=== PATIENT | female | born 1995 | race Caucasian/White ===

== ENCOUNTER 2024-02-28 13:17 | Emergency (ER) | payer OTHER, SELFPAY ==
[2024-02-28 13:27] VITALS: BP 152/86; PULSE 83; RESP 20; TEMP 37.3; O2SAT 99; BMI 25.1
--- NOTE | 2024-02-28 13:39 | ED_ITS ---
HPI - General Time Seen by Provider: 13:39 Date Seen: 02/28/24 Chief complaint: Vaginal Bleeding Stated complaint: Bleeding, cramping, 5/6 weeks Time Seen by Provider: 02/28/24 13:38 Source: patient and RN notes reviewed Mode of arrival: ambulatory Limitations: no limitations History of Present Illness HPI Narrative: This 28-year-old female is coming in with concern of increasing vaginal bleeding with confirmed . She had her last menstrual. Start on January 12. She had a positive test at home, went for confirmation of at a clinic in [place] on February 18. She started cramping on Monday, bleeding started on Monday but bleeding has intensified. She feels lightheaded it, short of breath from her bleeding. She has passed a few clots. They became concerned because the bleeding was have year and making her symptomatic. She states that no blood work was done at this appointment. This is her 1st p regnancy. She states they did an ultrasound in the clinic and told her she may have an ectopic, did ask her if they saw the on ultrasound. It sounds as if they could not see a on ultrasound and advised her of possible ectopic. She is having lower abdominal pain/pelvic pain, sounds like cramping. Related Data Home Medications ?Medication ?Instructions ?Recorded ?Confirmed Effexor XR 02/28/24 methylphenidate HCl 10 mg tablet 10 mg PO DAILY 02/28/24 02/28/24 (Ritalin) Allergies Allergy/AdvReac Type Severity Reaction Status Date / Time metoclopramide (From Reglan) Allergy Mild Shakiness Verified 02/28/24 13:35 Review of Systems Status of ROS: Reports: 6 or more systems reviewed and unremarkable except as noted in History and below [facility] Social History Smoking Status: Never smoker How often do you have a drink containing alcohol: never How often do you have six or more drinks on one occasion: Never AUDIT-C Alcohol total score: 0 Non-prescribed substance use: denies use service: No Exam Const: Vital Signs, click to edit/add: Vital Signs - 24 hr 02/28/24 13:27 02/28/24 15:05 02/28/24 15:44 Temperature 99.1 F 98.2 F Pulse Rate [Pulse Oximeter] 83 101 H Respiratory Rate 20 18 Blood Pressure [15 2/86] 152/86 H 145/79 H Pulse Oximetry 99 98 Oxygen Delivery Me thod Room Air Room Air This 28-year-old female is alert, interactive, no apparent distress. Sclera clear, face atraumatic. CV regular rate and rhythm, no significant murmur, normal S1-S2, no S3-S4. Lungs are clear, no tachypnea, no wheezing or crackles. Abdomen is soft, nondistended, no organomegaly or masses. She states she has mild tenderness in both right and left lower quadrants of her abdomen in the pelvic region, right is maybe worse than left but there is certainly no palpable masses, no evidence of any rebound or guarding. Pelvic exam deferred at this time. Documenting provider has reviewed patient's vital signs: yes Course Course ED Course: We will place an IV in this patient, check appropriate blood work including type and screen, quantitative hCG. First trimester limited OB ultrasound has been ordered. Did happen to see optical effects line up person on-call in passing, she is aware this patient is here. At this time patient is hemodynamically stable but will watch her closely. This needs to be better defined whether there is concern of ectopic here or if this is potentially a miscarriage. Reevaluation(s) Time of Reevaluation #1: 15:48 Reevaluation #1: Patient had been given some Zofran, she was dry heaving. She admits she has not ate or drank anything today. We discussed her hCG level and the preliminary construction assistant report. This is likely representing a miscarriage. We will await the Radiology reading of her ultrasound. Her hemoglobin is good, no concerning significant bleeding here. Recheck of vitals show stability but minimally elevated blood pressure. Patient is obviously anxious and under stress from her current situation however. She is afebrile at this time, temperature was rechecked. Time of Reevaluation #2: 16:12 Reevaluation #2: Updated patient plan after discussion with Dr. Kelley. She will be discharged to home. Consultations Consultation #1: Have reviewed case with Dr. Kelley. She agrees with following the hCG, agrees likely miscarriage given clinical scenario. Time: 16:10 Vital Signs Vital signs: Initial Vital Signs Temperature 99.1 F 02/28/24 13:27 Temperature Source Temporal Artery Scan 02/28/24 13:27 Pulse Rate 83 02/28/24 13:27 Pulse Rhythm Regular 02/28/24 13:27 Respiratory Rate 20 02/28/24 13:27 Blood Pressure 152/86 H 02/28/24 13:27 Blood Pressure Mean 108 H 02/28/24 13:27 Blood Pressure Position Sitting 02/28/24 13:27 Pulse Oximetry 99 02/28/24 13:27 Oxygen Delivery Method Room Air 02/28/24 13:27 Vital Signs Temperature 99.1 F 02/28/24 13:27 Pulse Rate 83 02/28/24 13:27 Respiratory Rate 20 02/28/24 13:27 Blood Pressure 152/86 H 02/28/24 13:27 Pulse Oximetry 99 02/28/24 13:27 Oxygen Delivery Method Room Air 02/28/24 13:27 Temperature 98.2 F 02/28/24 15:44 Pulse Rate 101 H 02/28/24 15:05 Respiratory Rate 18 02/28/24 15:05 Blood Pressure 145/79 H 02/28/24 15:05 Pulse Oximetry 98 02/28/24 15:05 Oxygen Delivery Method Room Air 02/28/24 15:05 Medications Administered Medications: Discontinued Medications Generic Name Dose Route Start Last Admin Trade Name Freq PRN Reason Stop Dose Admin Ondansetron HCl 4 mg 02/28/24 15:07 02/28/24 15:10 Ondansetron 2 Mg/Ml Inj IVP 02/28/24 15:08 4 mg ONCE ONE Administration MDM - OB/Uterine Contractions Lab Data Attestation: I reviewed the patient's lab results. Labs: Lab Results 02/28/24 Range/Units 13:59 WBC 16.34 H (4.50-11.00) K/uL RBC 4.14 (4.00-5.20) m/uL Hgb 13.1 (12.0-16.0) gm/dL Hct 39.6 (33.0-51.0) % MCV 96 (80-100) fL MCH 32 (26-34) pg MCHC 33 (32-36) gm/dL RDW Coeff of Sabrina 12.1 (11.5-15.5) % Plt Count 387 (140-440) K/uL Neut % (Auto) 84.5 H (42.0-72.0) % Lymph % (Auto) 9.3 L (20-44) % Bell % (Auto) 5.4 (0.0-11.0) % Eos % (Auto) 0.4 (0.0-7.0) % Baso % (Auto) 0.2 (0.0-3.0) % Neut # (Auto) 13.80 H (1.7-7.0) K/uL Lymph # (Auto) 1.50 (0.90-2.90) K/uL Bell # (Auto) 0.90 (0.00-0.90) K/UL Eos # (Auto) 0.10 (0.00-0.50) K/uL Baso # (Auto) 0.00 (0.00-0.30) K/uL Abs Immat Gran (auto) 0.00 (0.00-0.30) K/uL Imm/Tot Granulo (auto) 0.2 % Sodium 138 (135-149) mmol/L Potassium 3.8 (3.6-5.1) mmol/L Chloride 104 (96-114) mmol/L Carbon Dioxide 26 (20-32) mmol/L Anion Gap 8 (7-15) mEq/L BUN 8 (5-24) mg/dL Creatinine 0.6 (0.5-1.5) mg/dL Estimated Creat Clear 136.96 Estimated GFR 126 ml/min Glucose 103 (60-115) mg/dL Calcium 9.0 (8.4-10.6) mg/dL HCG, Quant 459.27 mIU/mL Blood Type A Positive Antibody Screen NEGATIVE Discharge Plan Discharge Clinical Impression: Miscarriage Patient Disposition: Home, Self-Care Condition: Stable Instructions: Miscarriage (ED) Additional Instructions: Quantitative hCG was 459.27 today. This needs to be followed and make sure it is decreasing. Need to schedule follow-up appointment within the next week for recheck, sooner if concerns or complications. Blood type was A positive. If your bleeding is increasing, bleeding through a maxi pad an hour for greater than 2 hours, have further concerns, please return for further evaluation. [facility] for a follow-up appointment within the next week, hCG level will be rechecked. You can let them know that you live in [facility] and see if they can assist you with an appointment closest your home. Prescriptions: No Action methylphenidate HCl [Ritalin] 10 mg tablet 10 mg PO DAILY Effexor XR Follow Up/Referrals: Provider,Not a Local [Primary Care Provider] - Stand Alone Forms: [employer] Info Instructions
--- NOTE | 2024-02-28 13:44 | CRLHL7_ITS ---
For Patients: As a result of the Century Cures Act, medical imaging exams and procedure reports are released immediately into your electronic medical record. You may view this report before your referring provider. If you have questions, please contact your health care provider. INDICATION: Bleeding and cramping in the 1st trimester TECHNIQUE: Ultrasound OB pelvis transabdominal and transvaginal. Real-time mitchell-scale imaging of the pelvis was performed. COMPARISON: None. FINDINGS: Intrauterine gestation: No evidence intrauterine . The endometrium appears ill-defined and thin. No gestational sac is visualized. Perigestational hemorrhage: None. Ovaries and adnexa: The right ovary measures 2.5 x 1.6 x 2.5 cm. The left ovary measures 3.3 x 2.1 x 2.4 cm. Left corpus luteal cyst measuring 1.9 x 1.6 x 1.8 cm. Suspicious pelvic fluid collections: None. IMPRESSION: 1. No evidence of intrauterine . Findings are compatible with of unknown location. Please correlate with beta HCG levels. Recommend repeat ultrasound in 7-10 days for reassessment. 2. The bilateral ovaries are unremarkable. Dictated by Annemarie Rodriguez MD @ 02/28/2024 3:53:08 PM (Electronically Signed)
[2024-02-28 14:07] LABS: Basophils Percent Auto 0.2 % (0.0-3.0); Eosinophils Percent Auto 0.4 % (0.0-7.0); Hematocrit 39.6 % (33.0-51.0); Hemoglobin* 13.1 gm/dL (12.0-16.0); Immature Granulocytes Pct Auto 0.2 %; Lymphocytes Percent Auto 9.3 % (20-44); Mean Corpuscular HGB Conc 33 gm/dL (32-36); Mean Corpuscular Hemoglobin 32 pg (26-34); Mean Corpuscular Volume 96 fL (80-100); Monocytes Percent Auto 5.4 % (0.0-11.0); Neutrophils Percent Auto 84.5 % (42.0-72.0); Platelet Count* 387 K/uL (140-440); RDW Coefficient of Variation % 12.1 % (11.5-15.5); Red Blood Count 4.14 m/uL (4.00-5.20); White Blood Count* 16.34 K/uL (4.50-11.00)
[2024-02-28 14:10] LABS: Slide Review Reflex No
[2024-02-28 14:18] LABS: Chloride* 104 mmol/L (96-114); Potassium* 3.8 mmol/L (3.6-5.1); Sodium* 138 mmol/L (135-149)
[2024-02-28 14:21] LABS: Anion Gap 8 mEq/L (7-15); Blood Urea Nitrogen* 8 mg/dL (5-24); Carbon Dioxide* 26 mmol/L (20-32); Creatinine* 0.6 mg/dL (0.5-1.5); Est. Creatinine Clearance* 136.96; Estimated Glomerular Filt Rate 126 ml/min; Glucose* 103 mg/dL (60-115)
[2024-02-28 14:51] LABS: HCG Quantitative* 459.27 mIU/mL
[2024-02-28 15:05] VITALS: BP 145/79; PULSE 101; RESP 18; O2SAT 98
[2024-02-28] MEDS: ONDANSETRON 2 MG/ML inj 4 MG IVP (15:10)
[2024-02-28 15:44] VITALS: TEMP 36.8
== END 2024-02-28 16:18 | disposition home or self-care (01) ==
PROVIDERS: Emergency Provider Family Medicine
DX: O03.9 Complete or unspecified spontaneous abortion without complication (principal)
CPT/HCPCS: 36415; 76817; 80048; 84702; 85025; 86850; 86900; 86901; 96374; 99284; J2405

== ENCOUNTER 2024-03-04 14:30 | Outpatient (CLI) | payer OTHER, SELFPAY | END 2024-03-04 14:31 | disposition home or self-care (01) | LOC: NFLDREF 14:31 | PROVIDERS: Visit Provider Obstetrics & Gynecology | DX: O20.9 Hemorrhage in early pregnancy, unspecified (principal) | CPT/HCPCS: 84702 ==

== ENCOUNTER 2024-03-11 14:09 | Outpatient (CLI) | payer OTHER, SELFPAY | END 2024-03-11 14:10 | disposition home or self-care (01) | LOC: NFLDREF 03-18 04:36 | PROVIDERS: Visit Provider Obstetrics & Gynecology | DX: O03.9 Complete or unspecified spontaneous abortion without complication (principal) | CPT/HCPCS: 84702 ==